=== PATIENT | female | born 1975 | race Caucasian/White ===

== ENCOUNTER → 2021-10-19 | Day surgery (SDC) | payer BC, OTHER ==
[~2021-10-19] MED LIST: FISH OIL 1,0001 EACH PO; VITAMIN B-12250 MCG PO
== END | disposition home or self-care (01) ==
LOC: OR 06:37
DX: K59.09 Other constipation (principal); R10.32 Left lower quadrant pain; K64.4 Residual hemorrhoidal skin tags; Z88.8 Allergy status to other drugs, medicaments and biological substances; Z79.899 Other long term (current) drug therapy; Z80.1 Family history of malignant neoplasm of trachea, bronchus and lung; Z80.0 Family history of malignant neoplasm of digestive organs
CPT/HCPCS: J2704; J7040